=== PATIENT | male | born 1985 | race Two or more races ===

== ENCOUNTER 2025-03-10 08:32 | Inpatient (IN) | payer MEDICAID, OTHER ==
[~2025-03-10] VITALS: Ht 172.7 cm; Wt 69.4 kg
[2025-03-10 09:00] VITALS: PULSE 96; RESP 14; O2SAT 98
--- NOTE | 2025-03-10 09:04 | ED.PDOC ---
SOB-HPI HPI Comments This is a 40 year old male GIOVANNYA presenting to the ED with chief complaint SOB. Patient reports that he has been experiencing SOB with associated chest pain and cough for the past 2 days. EMS relays that the patient was placed on 2L via NC due to having an O2 saturation of 93%. Patient denies any N/V, fever, chills, dizziness, headache, or hemoptysis. Chief Complaint: Shortness of Breath Time Seen by MD: 09:02 Reviewed notes: Nurses Notes, Medications, Allergies Information Source: Patient Mode of Arrival: EMS Severity: Moderate Timing: Days Duration: Since onset Context: At Rest PE Risk Factors: None History of: None Prehospital treatment: Oxygen Modifying Factors: Nothing Associated Signs and Symptoms: Cough, Chest Pain Quality: Pressure Radiation: No Radiation Location: Substernal If cough with SOB: Non-Productive Past Medical History PAST MEDICAL HISTORY: Denies Surgical History: Denies all surgeries Family History Family History: Reviewed,noncontributory to illness Social History Smoker: Non-Smoker Alcohol: Denies ETOH Use Drugs: Denies Drug Use Lives In: Home Constitutional: denies: chills, diaphoresis, fatigue, fever, malaise, sweats, weakness, others EENTM: denies: blurred vision, double vision, ear bleeding, ear discharge, ear drainage, ear pain, ear ringing, eye pain, eye redness, hearing loss, mouth pain, mouth swelling, nasal discharge, nose bleeding, nose congestion, nose pain, photophobia, tearing, throat pain, throat swelling, voice changes, others Respiratory: reports: cough, shortness of breath; denies: hemoptysis, orthopnea, SOB at rest, SOB with excertion, stridor, wheezing, others Cardiovascular: reports: chest pain; denies: dizzy spells, diaphoresis, Dyspnea on exertion, edema, irregular heart beat, left arm pain, lightheadedness, palpit ations, PND, syncope, others Gastrointestinal: denies: abdomen distended, abdominal pain, blood streaked b owels, constipated, diarrhea, dysphagia, difficulty swallowing, hematemesis, melena, nausea, poor appetite, poor fluid intake, rectal bleeding, rectal pain, vomiting, others Genitourinary: denies: burning, dysuria, flank pain, frequency, hematuria, incontinence, penile discharge, penile sore, pain, testicle pain, testicle swelling, urgency, others Neurological: denies: dizziness, fainting, headache, left sided numbness, left sided weakness, numbness, paresthesia, pre-existing deficit, right sided numbness, right sided weakness, seizure, speech problems, tingling, tremors, weakness, others Musculoskeletal: denies: back pain, gout, joint pain, joint swelling, muscle pain, muscle stiffness, neck pain, others Integumetry: denies: bruises, change in color, change in hair/nails, dryness, laceration, lesions, lumps, rash, wounds, others Allergic/Immunocompromised: denies: Difficulty Healing, Frequent Infections, Hives, Itching, others Hematologic/Lymphatic: denies: anemia, blood clots, easy bleeding, easy bruisi ng, swollen glands, others Endocrine: denies: excessive hunger, excessive sweating, excessive thirst, exce ssive urination, flushing, intolerance to cold, intolerance to heat, unexplained weight gain, unexplained weight loss, others Psychiatric: denies: anxiety, bipolar disorder, depression, hopeless, panic disorder, schizophrenia, sleepless, suicidal, others All Other Systems: Reviewed and Negative Physical Exam General Appearance: No Apparent Distress, Normal, Other (Able to speak in full sentences.) HEENT: Normal ENT Inspection, Pharynx Normal, TMs Normal Neck: Full Range of Motion, Non-Tender, Normal, Normal Inspection Respiratory: Chest Non-Tender, Lungs Clear, No Accessory Muscle Use, No Respiratory Distress, Normal Breath Sounds Cardiovascular: No Edema, No JVD, No Murmur, No Gallop, Normal Peripheral Pulses, Regular Rate/Rhythm Breast Exam: Deferred Gastrointestinal: No Organomegaly, Non Tender, No Pulsatile Mass, Normal Bowel Sounds, Soft Genitalia: Deferred Pelvic: Deferred Rectal: Deferred Extremities: No calf tenderness, Normal capillary refill, Normal inspection, Normal range of motion, Non-tender, No pedal edema Musculoskeletal : Apperance: Normal Neurologic: Alert, 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 Was a procedure done?: Yes Sedation Sedation?: No Chest Tube Indication: Pneumothorax Procedure: Sterile preparation Anesthetic: Lidocaine Site: R 2nd intercostal space Drainage: Air Informed consent obtained: Yes Risks/benefits/alt described: Yes Notes Local lidocaine and prepping of skin for Thora-vent placement to right second intercostal space at the mid axillary line. Thora-vent was placed under sterile conditions and patient tolerated procedure well. Thora-vent diaphragm seen oscillating with each breathing, connection tube has condensation with each breath, patient felt immediate improvement. There is 20ccs of water in water seal in the Pleuro-vac. Differential Dx Differential Diagnosis: Anxiety, Asthma, CHF, COPD, Dysrhythmia, Hyperventilation, Myocardial infarction, Panic Attack, Pneumonia, Pneumothorax, Pulmonary Embolism, Respiratory Distress X-Ray, Labs, Meds, VS Vital Signs Date Time Temp Pulse Resp B/P (MAP) Pulse Ox O2 Delivery O2 Flow Rate FiO2 03/10/25 09:50 98.4 84 19 116/83 (94) 96 98.4 03/10/25 09:00 96 14 98 Nasal Cannula* 2 28 03/10/25 09:00 99.0 96 14 121/74 (90) 98 99.0 03/10/25 08:42 85 03/10/25 08:41 98.4 84 12 117/82 (94) 98 98.4 03/10/25 08:40 12 98 Nasal Cannula* 2 28 Lab Test 03/10/25 09:42 Range/Units White Blood Count 8.5 4.4-10.8 10^3/uL Red Blood Count 4.59 4.5-5.90 10^6/uL Hemoglobin 13.7 13.5-17.5 g/dL Hematocrit 41.3 41.0-53.0 % Mean Corpuscular Volume 90.0 80.0-100.0 fL Mean Corpuscular Hemoglobin 29.9 28.0-32.0 pg Mean Corpuscular Hemoglobin Concent 33.2 32.0-36.0 g/dL Red Cell Distribution Width 13.6 11.8-14.3 % Platelet Count 238 140-450 10^3/uL Mean Platelet Volume 8.4 6.9-10.8 fL Neutrophils (%) (Auto) 79.1 37.0-80.0 % Lymphocytes (%) (Auto) 14.3 10.0-50.0 % Monocytes (%) (Auto) 4.7 0.0-12.0 % Eosinophils (%) (Auto) 1.4 0.0-7.0 % Basophils (%) (Auto) 0.5 0.0-2.0 % Neutrophils # (Auto) 6.7 1.6-8.6 10 ^3/uL Lymphocytes # (Auto) 1.2 0.4-5.4 10 ^3/uL Monocytes # (Auto) 0.4 0-1.3 10 ^3/uL Eosinophils # (Auto) 0.1 0-0.8 10 ^3/uL Basophils # (Auto) 0 0-0.2 10 ^3/uL Nucleated Red Blood Cells 0.0 % Sodium Level 144 136-145 mmol/L Potassium Level 3.9 3.5-5.1 mmol/L Chloride Level 108 H 98-107 mmol/L Carbon Dioxide Level 30 20-31 mmol/L Anion Gap 6 5-15 Blood Urea Nitrogen 15 9-23 mg/dL Creatinine 1.10 0.700-1.30 mg/dL Glomerular Filtration Rate Calc 86 >90 mL/min BUN/Creatinine Ratio 13.6 10.0-20.0 Serum Glucose 94 74-106 mg/dL Calcium Level 8.8 8.7-10.4 mg/dL Troponin I High Sensitivity 8 </=54 ng/L Chest XR: FINDINGS: LUNGS AND PLEURAL SPACES: Right-sided pneumothorax. HEART: Unremarkable. No cardiomegaly. MEDIASTINUM: Unremarkable. Normal mediastinal contour. BONES/JOINTS: Unremarkable. No acute fracture. OTHER FINDINGS: . . IMPRESSION: Right-sided pneumothorax. Findings were discussed with dr. Brambila by phone on 03/10/2025 at 9:46 a.m. Chest XR s/p chest tube placement notes re-expansion of the lung. Images Reviewed?: Images reviewed and evaluated by me Time of 1ST Reevaluation: 10:01 Reevaluation 1ST: Unchanged Time of 2ND Reevaluation: 11:55 Reevaluation 2ND: Improved Patient Education/Counseling: Diagnosis, Treatment, Prognosis, Need For Follow Up Family Education/Counseling: No Family Present Comments pt has a spontaneous ptx of the right lung at 100% with mediastinal shift to left. a thoravent was placed with improvement. pt will be admitted for further monitoring Additional Information Previous visits reviewed: None The following tests were ordered, and results were reviewed by me: CBC, BMP, Troponin, Chest XR Additional Information was gathered from interviewing the following independent historians: EMS I reviewed and agreed with the following test results read by other providers: Chest XR I discussed treatment and results with medical personnel and: patient Comprehensive systems review obtained and negative except for what is stated in the HPI. SEPSIS Sepsis Screen Date sepsis recognized/suspect: Mar 10, 2025 Time Sepsis recognized/suspect: 837 Recent Procedure: No On Antibiotic Therapy: No Respiratory Rate >20: No Heart Rate >90: No Temp<36 C (96.8 F) or >38.3 C: No SBP <90 or MAP <65 mmHG: No New Acute Mental Status Change: No Is the patient on CPAP, BIPAP,: No Physician Orders Electrocardigram (03/10/25 08:47) Chest Portable (03/10/25 08:57) Chest Xray 1 View (03/10/25 11:17) Vital Signs Date Time Temp Pulse Resp B/P (MAP) Pulse Ox O2 Delivery O2 Flow Rate FiO2 03/10/25 09:50 98.4 84 19 116/83 (94) 96 98.4 03/10/25 09:00 96 14 98 Nasal Cannula* 2 28 03/10/25 09:00 99.0 96 14 121/74 (90) 98 99.0 03/10/25 08:42 85 03/10/25 08:41 98.4 84 12 117/82 (94) 98 98.4 03/10/25 08:40 12 98 Nasal Cannula* 2 28 Laboratory Tests Test 03/10/25 09:42 White Blood Count 8.5 10^3/uL (4.4-10.8) Departure 1 Departure Time of Disposition: 11:56 Impression: Primary Impression: Pneumothorax on right Additional Impression: Tension pneumatocele Disposition: ADMITTED INPATIENT Admit to: Tele Condition: Stable Discharged With: Self Critical Care Note Critical Care Time?: Yes (55 min-critical care time only) Critical care comment: Due to concerns for patients condition deteriorating, the care required my highest level of attention and readiness to intervene. I assessed the patient, reviewed the medical records, ordered the appropriate tests and treatments, then reassessed for results and responsiveness. I communicated with medical personnel and consultants and formulated a plan of care. Total critical care time excludes any procedures Stability Stability form required: No Heart Score Heart Score: Heart Score Response (Comments) Value History Moderate Suspicious 1 EKG Normal 0 Age <45 0 Risk Factors No known risk factors 0 Troponin Normal limit 0 Total 1 I personally scribed for REBECCA CHAVEZ MD ([email or web address]) on 03/10/25 at 09:04. Electronically submitted by Bautista Conn ([email or web address]). I personally scribed for REBECCA CHAVEZ MD ([email or web address]) on 03/10/25 at 10:50. Electronically submitted by Bautista Conn ([email or web address]). I personally scribed for REBECCA CHAVEZ MD ([email or web address]) on 03/10/25 at 11:28. Electronically submitted by Bautista Conn ([email or web address]). I personally scribed for REBECCA CHAVEZ MD ([email or web address]) on 03/10/25 at 11:43. Electronically submitted by Bautista Conn ([email or web address]). REBECCA CHAVEZ MD Mar 10, 2025 09:04
--- NOTE | 2025-03-10 09:49 | DVH ---
EXAM: XR Chest, 1 View CLINICAL INDICATION: sob TECHNIQUE: Frontal view of the chest. COMPARISON: None FINDINGS: LUNGS AND PLEURAL SPACES: Right-sided pneumothorax. HEART: Unremarkable. No cardiomegaly. MEDIASTINUM: Unremarkable. Normal mediastinal contour. BONES/JOINTS: Unremarkable. No acute fracture. OTHER FINDINGS: . . IMPRESSION: Right-sided pneumothorax. Findings were discussed with dr. Brambila by phone on 03/10/2025 at 9:46 a.m.
[2025-03-10 10:03] LABS: Basophils # (auto) 0 10 ^3/uL (0-0.2); Basophils % (auto) 0.5 % (0.0-2.0); Eosinophils # (auto) 0.1 10 ^3/uL (0-0.8); Eosinophils % (auto) 1.4 % (0.0-7.0); Hematocrit 41.3 % (41.0-53.0); Hemoglobin 13.7 g/dL (13.5-17.5); Lymphocytes # (auto) 1.2 10 ^3/uL (0.4-5.4); Lymphocytes % (auto) 14.3 % (10.0-50.0); Mean Corpuscular Hemoglobin 29.9 pg (28.0-32.0); Mean Corpuscular Hgb Conc. 33.2 g/dL (32.0-36.0); Monocytes # (auto) 0.4 10 ^3/uL (0-1.3); Monocytes % (auto) 4.7 % (0.0-12.0); Neutrophils # (auto) 6.7 10 ^3/uL (1.6-8.6); Neutrophils % (auto) 79.1 % (37.0-80.0); Platelet Count (auto) 238 10^3/uL (140-450); Red Blood Cells 4.59 10^6/uL (4.5-5.90); Red Cell Distribution Width 13.6 % (11.8-14.3); White Blood Cell 8.5 10^3/uL (4.4-10.8)
[2025-03-10 10:11] LABS: Potassium 3.9 mmol/L (3.5-5.1); Sodium 144 mmol/L (136-145)
[2025-03-10 10:12] LABS: Anion Gap 6 (5-15); Calcium 8.8 mg/dL (8.7-10.4); Carbon Dioxide 30 mmol/L (20-31)
[2025-03-10 10:14] LABS: Chloride 108 mmol/L (98-107)
[2025-03-10 10:17] LABS: BUN/Creatinine Ratio 13.6 (10.0-20.0); Blood Urea Nitrogen 15 mg/dL (9-23); Glucose 94 mg/dL (74-106)
[2025-03-10] MEDS: LIDOCAINE 1% HCL (LOCAL ANESTH.) INJ 20ML MDV ID ONE (11:15)
--- NOTE | 2025-03-10 12:16 | DVH ---
XY CHEST XRAY 1 VIEW, HISTORY: S/P NEEDLE THORACOSTOMY COMPARISON: XY CHEST PORTABLE on DOS: 03/10/25 XY CHEST PORTABLE on DOS: 03/10/25 TECHNICAL DATA: 1 view of the chest was obtained. FINDINGS: Lines and tubes: A right sided chest tube is seen. Cardiomediastinal silhouette: normal Pulmonary vasculature: normal Lung expansion: normal Lung airspace: normal Lung interstitium: normal Pleura: normal Pneumothorax: Yes Bones: Unremarkable Other: no IMPRESSION: A right sided chest tube is seen with decreased size of the right pneumothorax now moderate to large.
[2025-03-10] MEDS ORDERED: ACETAMINOPHEN 325 MG TAB PO PRN (13:15)
[2025-03-10] MEDS ORDERED: NITROGLYCERIN 0.4 MG SL TAB SL PRN (13:15)
[2025-03-10] MEDS ORDERED: MORPHINE SULFATE INJ 2 MG/ml SYRG IV PRN (13:15)
[2025-03-10] MEDS ORDERED: ONDANSETRON HCL 4 MG/2 ML VIAL IV PRN (13:15)
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
[2025-03-10] MEDS: ENOXAPARIN SOD 40 MG/0.4 ML SYRINGE SC SCH (13:49)
--- NOTE | 2025-03-10 17:13 | DVH ---
CHEST RADIOGRAPH Indication: REASSESS LUNG EXPANSION Technique: Single frontal view of the chest was obtained COMPARISON: XY CHEST XRAY 1 VIEW on DOS: 03/10/25, XY CHEST PORTABLE on DOS: 03/10/25 FINDINGS: Lines and Tubes: Stable right-sided chest tube. Lungs: Stable volume loss throughout the right lung. Pleura: No effusion. Redemonstration of moderate to large right-sided pneumothorax with stable chest tube in place. Cardiomediastinal contours: Unremarkable Bones: Unremarkable IMPRESSION: Redemonstration of moderate to large right-sided pneumothorax with stable chest tube in place. No sig nificant interval change since prior chest x-ray from earlier today.
[2025-03-10 17:58] VITALS: PULSE 101; RESP 18; O2SAT 99
--- NOTE | 2025-03-10 18:13 | DVHSR ---
APPROVED REPORT EXAM: Two-dimensional and M-mode echocardiogram with Doppler and color Doppler. Blood Pressure: 119/70 mmHg INDICATION Chest Pain RISK FACTORS Height: 5' 8", Weight: 169 DIMENSIONS LVDd4.0 (3.8-5.7cm)LA (2D)3.6 (1.9-4.0cm)Aortic Root3.1 (2.0-3.7cm) LVDs2.9 (2.5-4.0cm)LA (MM) (1.9-4.0cm)Aortic Cusp Exc1.8 (1.5-2.0cm) EF (%) 55.0 (55-70%)Rt. Atrium4.1 (1.9-4.0cm)Asc. Aorta cm IVSd0.7 (0.7-1.1cm)RV (D) (1.8-2.4cm) PWd0.7 (0.7-1.1cm) Mitral Valve MitralMitral Stenosis E wave0.80m/sMV Mean GR.mmHg A wave0.70m/sMV Peak GR.mmHg E/A ratio1.12D MVAcm2 Aortic Valve Aortic ValveAortic Stenosis V11.00m/Geraldo Mean GR.4mmHg V21.40m/Geraldo Peak GR.8mmHg LVOT Diameter2.1 (1.8-2.4cm)Doppler AVA2.47cm2 Pulmonic Valve V21.10m/s Conclusion LV EF IS 65% AND IS NORMALL NORMAL VALVES NORMAL RV FUNCTION NO EFFUSION
[2025-03-10 18:38] LABS: Urine Amorphous Crystal FEW /hpf (None Seen); Urine Bacteria FEW /hpf (None Seen); Urine Blood Negative /uL (Negative); Urine Clarity Clear (Clear); Urine Color Light-Yellow (Yellow); Urine Mucus FEW (None Seen); Urine Protein, UAD Negative (Negative); Urine Specific Gravity 1.021 (1.001-1.035); Urine Squamous Epithelial Cell FEW /hpf (<5); Urine Urobilinogen Normal (Negative); Urine WBC 4 /HPF (0-3)
[2025-03-10 18:51] LABS: Amphetamine Screen, Urine Pos (NEGATIVE); Barbiturate Scree,Urine Neg (NEGATIVE); Benzodiazephine Screen, Urine Neg (NEGATIVE); Cannabinoid Screen, Urine Neg (NEGATIVE); Cocaine Screen, Urine Neg (NEGATIVE); Opiate Scree,Urine Neg (NEGATIVE); Phencyclidine Screen, Urine Neg (NEGATIVE)
[2025-03-10 19:30] VITALS: RESP 20; O2SAT 100
[2025-03-10 21:35] VITALS: BP 121/64; PULSE 104; RESP 18; TEMP 98.6; O2SAT 98
--- NOTE | 2025-03-10 22:21 | ECG ---
[facility] Test Date: 2025-03-10 Test Time: 08:42:45 Pat Name: ALO YEN Department: ED Room: [facility]4T A Gender: M Auto Glass Worker: [email or web address] : 1985 Requested By: REBECCA CHAVEZ Order Number: [id number] Reading MD: Jose Nice Measurements Intervals Maud Rate: 85 P: 90 OH: 104 QRS: 99 QRSD: 91 T: 91 QT: 364 QTc: 433 Interpretive Statements Sinus rhythm Short OH interval Borderline right axis deviation Left ventricular hypertrophy Nonspecific T abnormalities, lateral leads Electronically Signed On 03-13-2025 22:40:39 PDT by Jose Nice Please click the below link to view image of tracing.
[2025-03-10] MEDS: MORPHINE SULFATE INJ 2 MG/ml SYRG IV PRN (23:20)
[2025-03-11] VITALS (8 sets, daily range): BP systolic 102–121; BP diastolic 55–75; PULSE 54–92; RESP 17–20; TEMP 96.5–98.6; O2SAT 93–100
[2025-03-11] MEDS: HYDROcodone-ACET 5/325MG TAB PO PRN (02:21)
[2025-03-11 09:44] LABS: Basophils # (auto) 0 10 ^3/uL (0-0.2); Basophils % (auto) 0.4 % (0.0-2.0); Eosinophils # (auto) 0.2 10 ^3/uL (0-0.8); Eosinophils % (auto) 2.7 % (0.0-7.0); Hematocrit 41.6 % (41.0-53.0); Hemoglobin 13.7 g/dL (13.5-17.5); Lymphocytes # (auto) 1.7 10 ^3/uL (0.4-5.4); Lymphocytes % (auto) 18.8 % (10.0-50.0); Mean Corpuscular Hemoglobin 29.7 pg (28.0-32.0); Mean Corpuscular Hgb Conc. 33.1 g/dL (32.0-36.0); Mean Corpuscular Volume 89.7 fL (80.0-100.0); Monocytes # (auto) 0.4 10 ^3/uL (0-1.3); Monocytes % (auto) 4.3 % (0.0-12.0); Neutrophils # (auto) 6.5 10 ^3/uL (1.6-8.6); Neutrophils % (auto) 73.8 % (37.0-80.0); Nucleated Red Blood Cells % 0.1 %; Platelet Count (auto) 232 10^3/uL (140-450); Red Blood Cells 4.63 10^6/uL (4.5-5.90); Red Cell Distribution Width 13.5 % (11.8-14.3); White Blood Cell 8.9 10^3/uL (4.4-10.8)
[2025-03-11 10:09] LABS: Alanine Aminotransferase 13 U/L (7-40); Albumin 3.5 g/dL (3.2-4.8); Alkaline Phosphatase 91 U/L (46-116); Anion Gap 7 (5-15); Aspartate Aminotransferase 18 U/L (<34); BUN/Creatinine Ratio 11.5 (10.0-20.0); Bilirubin, Total 0.4 mg/dL (0.2-1.0); Blood Urea Nitrogen 13 mg/dL (9-23); Calcium 9.3 mg/dL (8.7-10.4); Carbon Dioxide 30 mmol/L (20-31); Chloride 105 mmol/L (98-107); Potassium 4.1 mmol/L (3.5-5.1); Sodium 142 mmol/L (136-145); Total Protein 6.1 g/dL (5.7-8.2)
--- NOTE | 2025-03-11 10:47 | DVH ---
CHEST XRAY: 1 view(s) was obtained HISTORY: ptx COMPARISON: XY CHEST XRAY 1 VIEW on DOS: 03/10/25, XY CHEST XRAY 1 VIEW on DOS: 03/10/25, XY CHEST PORT ABLE on DOS: 03/10/25 FINDINGS: Right chest wall aspiration catheter. There is a small right pneumothorax with 2.5 cm apical- pleural distance. Right lower lobe atelectasis remains. Cardiomediastinal solid is normal in size. No acute osseous 7 mild. IMPRESSION: 1. Significant reexpansion of the right lung when compared to 03/10, though a small right pneumothorax and right basilar atelectasis - trapped lung remain.
[2025-03-11 10:54] LABS: Glucose 61 mg/dL (74-106)
--- NOTE | 2025-03-11 14:19 | DVHPN2 ---
Subjective states pain is better Changes from previous H/P or p: No Changes Cardiovascular: Chest Pain Respiratory: Shortness of breath Objective Vitals Vital Signs Date Time Temp Pulse Resp B/P (MAP) Pulse Ox O2 Delivery O2 Flow Rate FiO2 03/11/25 12:44 97.8 61 20 102/73 (83) 96 97.8 03/11/25 07:45 Non-Rebreather 15 N/A Intake/Output Intake and Output 03/11/25 07:00 Intake Total 120 ml Balance 120 ml Intake Oral 120 ml General Appearance: Alert, Oriented X3, Cooperative, No acute distress Lungs: Clear to auscultation Cardiovascular: Regular rate, Normal S1, Normal S2 Abdomen: Normal bowel sounds, Soft, No tenderness, No hepatospenomegaly Neuro: Normal gait, Normal speech, Strength at 5/5 X4 ext, Normal tone, S ensation intact, Cranial nerves 3-12 NL Psych/Mental Status: Mental status NL, Mood NL Medications Current Medications Medications Dose Ordered Sig/Omid Route Start Time Stop Time Status Last Admin Dose Admin Acetaminophen/ Hydrocodone Bitart 1 tab Q4HP PRN PO 03/10/25 13:15 03/11/25 02:21 1 TAB Ondansetron HCl 4 mg Q4HP PRN IV 03/10/25 13:15 Acetaminophen 650 mg Q6HP PRN PO 03/10/25 13:15 Morphine Sulfate 2 mg Q4HPRN PRN IV 03/10/25 13:15 03/10/25 23:20 2 MG Nitroglycerin 0.4 mg Q5MINP PRN SL 03/10/25 13:15 Morphine Sulfate 2 mg Q30M PRN IV 03/10/25 13:15 Enoxaparin Sodium 40 mg DAILY SC 03/10/25 13:15 Laboratory Results Laboratory Tests 03/11/25 08:50 Chemistry Test 03/11/25 08:50 Albumin 3.5 g/dL (3.2-4.8) Calcium Level 9.3 mg/dL (8.7-10.4) Total Protein 6.1 g/dL (5.7-8.2) LFT Test 03/11/25 08:50 Alanine Aminotransferase (ALT) 13 U/L (7-40) Alkaline Phosphatase 91 U/L (46-116) Aspartate Amino Transferase (AST) 18 U/L (<34) Total Bilirubin 0.4 mg/dL (0.2-1.0) Urinalysis Test 03/10/25 18:20 Urine Color Light-yellow (Yellow) Urine Clarity Clear (Clear) Urine pH 7.0 (5.0-9.0) Urine Specific [place] 1.021 (1.001-1.035) Urine Protein Negative (Negative) Urine Ketones Negative (Negative) Urine Blood Negative /uL (Negative) Urine Nitrite Negative (Negative) Urine Bilirubin Negative (Negative) Urine Urobilinogen Normal mg/dL (Negative) Urine Leukocyte Esterase Negative /uL (Negative) Urine RBC 2 /hpf (0 - 3) Urine Microscopic WBC 4 /HPF (0-3) H Urine Squamous Epithelial Cells Few /hpf (<5) Urine Amorphous Crystals Few /hpf (None Seen) Urine Bacteria Few /hpf (None Seen) H Urine Mucus Few (None Seen) Urine Glucose Normal mg/dL (Normal) Assessment/Plan Assessment/Plan rt pneumothorax- s/p chest tube ? lung trapping- pulmonary consulted/on board meth abuse- no signs of withdrawl monitor Plan discussed with: Patient, Other Date of Service: Mar 11, 2025 Billing Provider: DARREL CHAMPAGNE MD Common Visit Codes: [id number] INP/OBS CARE(MOD) DARREL CHAMPAGNE MD Mar 11, 2025 14:19
[2025-03-11] MEDS: cefTRIAXone 1GM/50ML D5W 50 ML IV ONE (16:09)
--- NOTE | 2025-03-11 16:19 | DVHINCON2 ---
Date of service: Mar 10, 2025 Referring Physician Violeta Sol Np Reason for Consultation Acute respiratory failure History of Present Illness History Source: Patient Exam Limitations: No limitations HPI Patient is a 40-year old gentleman with a history of nicotine dependency and substance abuse who presented with chest pain, shortness of breath and cough. Was seen in the emergency room where chest x-ray demonstrated right pneumothorax and chest tube was subsequently placed by the ER provider. Pulmonology was consulted to assist in management. Home Meds No Active Prescriptions or Reported Meds Past Medical History Cardiac: No pertinent Hx Pulmonary: No pertinent Hx Central Nervous System: No pertinent Hx GI: No pertinent Hx Hemotology/Oncology: No pertinent Hx Hepatobiliary: No pertinent Hx Psychiatric: No pertinent Hx Musculoskeletal: No pertinent Hx Rheumotologic: No pertinent Hx Infectious Disease: No peritnent Hx ENT: No pertinent Hx Renal/: No pertinent Hx Endocrine: No pertinent Hx Dermatology: No pertinent Hx Past Surgical History: No pertinent Hx Patient Family History: Diabetes mellitus G8 MOTHER Smoker: Positive Alocohol: None Drugs: Amphetimines Lives with: With family Domestic Violence: Neg Review of Systems Constitutional: No symptom reported Ears, Nose, & Throat: No symptom reported Eyes: No symptom reported Pulmonary/Respiratory: Dyspnea, Cough Cardiovascular: Chest Pain Gastrointestinal: No symptom reported Genitourinary: No symptom reported Musculoskeletal: No symptom reported Skin: No symptom reported Psychiatric: No symptom reported Endocrine: No symptom reported Hemotologic/Lymphatic: No symptom reported H&P Exam Vital Signs Vital Signs Date Time Temp Pulse Resp B/P (MAP) Pulse Ox O2 Delivery O2 Flow Rate FiO2 03/11/25 12:44 97.8 61 20 102/73 (83) 96 97.8 03/11/25 07:45 Non-Rebreather 15 N/A General Appeara: Well developed, Well nourished, Normal Appearance Head Exam: Normal inspection Neck Exam: Normal inspection, Non-tender, Normal alignment Eye Exam: bilateral eye Normal inspection, bilateral eye PERRL, bilateral eye EOMI Ear Exam: bilateral ear Auricle normal, bilateral ear Canal normal, bilateral ear TM normal Nasal Exam: Normal inspection Mouth: Normal Inspection Pulmonary/Respiratory: Decreased breath sounds Cardiovascular/Chest: Normal inspection, Regular rate, Normal Rhythm Peripheral Pulses: 4+ Radial (R), 4+ Radial (L), 4+ Brachial (R), 4+ Brachial (L) Abdominal Exam: Normal bowel sounds Labs/Xrays Labs Test 03/11/25 08:50 03/10/25 18:20 03/10/25 09:42 Range/Units White Blood Count 8.9 4.4-10.8 10^3/uL Red Blood Count 4.63 4.5-5.90 10^6/uL Hemoglobin 13.7 13.5-17.5 g/dL Hematocrit 41.6 41.0-53.0 % Mean Corpuscular Volume 89.7 80.0-100.0 fL Mean Corpuscular Hemoglobin 29.7 28.0-32.0 pg Mean Corpuscular Hemoglobin Concent 33.1 32.0-36.0 g/dL Red Cell Distribution Width 13.5 11.8-14.3 % Platelet Count 232 140-450 10^3/uL Mean Platelet Volume 8.6 6.9-10.8 fL Neutrophils (%) (Auto) 73.8 37.0-80.0 % Lymphocytes (%) (Auto) 18.8 10.0-50.0 % Monocytes (%) (Auto) 4.3 0.0-12.0 % Eosinophils (%) (Auto) 2.7 0.0-7.0 % Basophils (%) (Auto) 0.4 0.0-2.0 % Neutrophils # (Auto) 6.5 1.6-8.6 10 ^3/uL Lymphocytes # (Auto) 1.7 0.4-5.4 10 ^3/uL Monocytes # (Auto) 0.4 0-1.3 10 ^3/uL Eosinophils # (Auto) 0.2 0-0.8 10 ^3/uL Basophils # (Auto) 0 0-0.2 10 ^3/uL Nucleated Red Blood Cells 0.1 % Sodium Level 142 136-145 mmol/L Potassium Level 4.1 3.5-5.1 mmol/L Chloride Level 105 98-107 mmol/L Carbon Dioxide Level 30 20-31 mmol/L Anion Gap 7 5-15 Blood Urea Nitrogen 13 9-23 mg/dL Creatinine 1.13 0.700-1.30 mg/dL Glomerular Filtration Rate Calc 84 >90 mL/min BUN/Creatinine Ratio 11.5 10.0-20.0 Serum Glucose 61 L 74-106 mg/dL Calcium Level 9.3 8.7-10.4 mg/dL Total Bilirubin 0.4 0.2-1.0 mg/dL Aspartate Amino Transferase (AST) 18 <34 U/L Alanine Aminotransferase (ALT) 13 7-40 U/L Alkaline Phosphatase 91 46-116 U/L Total Protein 6.1 5.7-8.2 g/dL Albumin 3.5 3.2-4.8 g/dL Urine Color Light-yellow Yellow Urine Clarity Clear Clear Urine pH 7.0 5.0-9.0 Urine Specific [place] 1.021 1.001-1.035 Urine Protein Negative Negative Urine Ketones Negative Negative Urine Blood Negative Negative /uL Urine Nitrite Negative Negative Urine Bilirubin Negative Negative Urine Urobilinogen Normal Negative mg/dL Urine Leukocyte Esterase Negative Negative /uL Urine RBC 2 0 - 3 /hpf Urine Microscopic WBC 4 H 0-3 /HPF Urine Squamous Epithelial Cells Few <5 /hpf Urine Amorphous Crystals Few None Seen /hpf Urine Bacteria Few H None Seen /hpf Urine Mucus Few None Seen Urine Glucose Normal Normal mg/dL Urine Opiates Screen Neg NEGATIVE Urine Fentanyl Screen Neg NEGATIVE Urine Barbiturates Screen Neg NEGATIVE Urine Phencyclidine Screen Neg NEGATIVE Urine Amphetamines Screen Pos NEGATIVE Urine Benzodiazepines Screen Neg NEGATIVE Urine Cocaine Screen Neg NEGATIVE Urine Cannabinoids Screen Neg NEGATIVE Troponin I High Sensitivity 8 </=54 ng/L Assessment/Plan Plan Impression Acute hypoxemic respiratory failure Spontaneous right pneumothorax Substance abuse Smoker Patient seen and examined Events Low oxygen requirements On 2 liters nasal cannula Vital signs stable Labs and imaging reviewed Chest x-ray shows right pneumothorax, chest tube in place Management Supplemental oxygen Titrate to maintain sats 90% or above Incentive spirometry Bronchodilators Monitor renal function Monitor electrolytes Supplement as needed Pain control Avoid oversedation Chest tube to continuous negative suction DVT prophylaxis Plan discussed with: Patient SILKE GARCIA MD Mar 11, 2025 16:19
--- NOTE | 2025-03-11 16:20 | DVHPN2 ---
Progress Note - Dictate Date Seen: Mar 11, 2025 Medical Necessity Reason Pt with a Central, PICC or Fol: No vital signs Vital Sign Date Time Temp Pulse Resp B/P (MAP) Pulse Ox O2 Delivery O2 Flow Rate FiO2 03/11/25 12:44 97.8 61 20 102/73 (83) 96 97.8 03/11/25 07:45 Non-Rebreather 15 N/A Total Intake and Output 03/10/25 03/10/25 03/11/25 15:00 23:00 07:00 Intake Total 120 ml Balance 120 ml medications Current Medications Medications Dose Ordered Sig/Omid Route Start Time Stop Time Status Last Admin Dose Admin Acetaminophen/ Hydrocodone Bitart 1 tab Q4HP PRN PO 03/10/25 13:15 03/11/25 02:21 1 TAB Acetaminophen 650 mg Q6HP PRN PO 03/10/25 13:15 Enoxaparin Sodium 40 mg DAILY SC 03/10/25 13:15 Ceftriaxone Sodium 50 ml @ 100 mls/hr DAILY@09 IV 03/12/25 09:00 laboratory and microbiology Laboratory Tests 03/11/25 08:50 Test 03/11/25 08:50 Range/Units Serum Glucose 61 L 74-106 mg/dL Assessment/Plan Impression Acute hypoxemic respiratory failure Spontaneous right pneumothorax Substance abuse Smoker Patient seen and examined Events Low oxygen requirements On 2 liters nasal cannula Right sided chest tube in place for pneumothorax Labs and imaging reviewed Management Supplemental oxygen Titrate to maintain sats 90% or above Incentive spirometry Bronchodilators Monitor renal function Monitor electrolytes Supplement as needed Pain control Avoid oversedation Chest tube to continuous negative suction DVT prophylaxis Critical care time 35 minutes Plan discussed with: Patient SILKE GARCIA MD Mar 11, 2025 16:20
[2025-03-12] VITALS (8 sets, daily range): BP systolic 104–111; BP diastolic 57–92; PULSE 51–78; RESP 14–18; TEMP 97.5–98.4; O2SAT 94–100
--- NOTE | 2025-03-12 07:20 | DVH ---
EXAM: XY CHEST XRAY 1 VIEW HISTORY: ptx COMPARISON: XY CHEST XRAY 1 VIEW on DOS: 03/11/25, XY CHEST XRAY 1 VIEW on DOS: 03/10/25, XY CHEST XRAY 1 VIEW on DOS: 03/10/25, XY CHEST PORTABLE on DOS: 03/10/25 TECHNIQUE: Portable AP view of the chest was performed. FINDINGS: There is small right apical pneumothorax measuring 8 mm, with right thoracostomy tube reidentified. T here is right basilar atelectasis. There is right lung interstitial opacity. The heart is borderline enlarged. IMPRESSION: Small residual right apical pneumothorax with thoracostomy tube in place. There are right basilar ate lectasis and mild right lung interstitial prominence.
[2025-03-12] MEDS: cefTRIAXone 1GM/50ML D5W 50 ML IV SCH (09:18)
--- NOTE | 2025-03-12 12:53 | DVHPN2 ---
Reviewed: Care Plan, H&P Changes from previous H/P or p: No Changes Cardiovascular: Chest Pain Respiratory: Shortness of breath Objective Vitals Vital Signs Date Time Temp Pulse Resp B/P (MAP) Pulse Ox O2 Delivery O2 Flow Rate FiO2 03/12/25 09:00 97.5 72 18 104/92 (96) 99 97.5 03/12/25 08:00 Nasal Cannula* 2 28 Intake/Output Intake and Output 03/12/25 07:00 Intake Total 1250 ml Output Total 800 ml Balance 450 ml Intake Oral 1200 ml IV Total 50 ml Output Urine Total 800 ml Chest Tube Drainage Total 0 ml # Voids 3 General Appearance: Alert, Oriented X3, Cooperative, No acute distress Lungs: Clear to auscultation Cardiovascular: Regular rate, Normal S1, Normal S2 Abdomen: Normal bowel sounds, Soft, No tenderness, No hepatospenomegaly Neuro: Normal gait, Normal speech, Strength at 5/5 X4 ext, Normal tone, S ensation intact, Cranial nerves 3-12 NL Psych/Mental Status: Mental status NL, Mood NL Medications Current Medications Medications Dose Ordered Sig/Omid Route Start Time Stop Time Status Last Admin Dose Admin Acetaminophen/ Hydrocodone Bitart 1 tab Q4HP PRN PO 03/10/25 13:15 03/12/25 04:02 1 TAB Acetaminophen 650 mg Q6HP PRN PO 03/10/25 13:15 Enoxaparin Sodium 40 mg DAILY SC 03/10/25 13:15 Ceftriaxone Sodium 50 ml @ 100 mls/hr DAILY@09 IV 03/12/25 09:00 03/12/25 09:18 100 MLS/HR Laboratory Results Laboratory Tests 03/11/25 08:50 Urinalysis Test 03/10/25 18:20 Urine Color Light-yellow (Yellow) Urine Clarity Clear (Clear) Urine pH 7.0 (5.0-9.0) Urine Specific [place] 1.021 (1.001-1.035) Urine Protein Negative (Negative) Urine Ketones Negative (Negative) Urine Blood Negative /uL (Negative) Urine Nitrite Negative (Negative) Urine Bilirubin Negative (Negative) Urine Urobilinogen Normal mg/dL (Negative) Urine Leukocyte Esterase Negative /uL (Negative) Urine RBC 2 /hpf (0 - 3) Urine Microscopic WBC 4 /HPF (0-3) H Urine Squamous Epithelial Cells Few /hpf (<5) Urine Amorphous Crystals Few /hpf (None Seen) Urine Bacteria Few /hpf (None Seen) H Urine Mucus Few (None Seen) Urine Glucose Normal mg/dL (Normal) Assessment/Plan Assessment/Plan rt pneumothorax- s/p chest tube ? lung trapping- pulmonary consulted/on board meth abuse- no signs of withdrawl monitor acute hypoxic resp failure improving, pulm to remove chest tube when apprropriate Plan discussed with: Patient Date of Service: Mar 12, 2025 Billing Provider: EMILIE SANCHEZ DO Common Visit Codes: [id number] INP/OBS CARE(HIGH) EMILIE SANCHEZ DO Mar 12, 2025 12:53
--- NOTE | 2025-03-12 18:58 | DVHPN2 ---
Progress Note - Dictate Date Seen: Mar 12, 2025 Medical Necessity Reason Pt with a Central, PICC or Fol: No vital signs Vital Sign Date Time Temp Pulse Resp B/P (MAP) Pulse Ox O2 Delivery O2 Flow Rate FiO2 03/12/25 17:00 98.0 56 18 106/57 (73) 100 98.0 03/12/25 08:00 Nasal Cannula* 2 28 Total Intake and Output 03/11/25 03/11/25 03/12/25 15:00 23:00 07:00 Intake Total 950 ml 300 ml Output Total 800 ml Balance 950 ml -500 ml medications Current Medications Medications Dose Ordered Sig/Omid Route Start Time Stop Time Status Last Admin Dose Admin Acetaminophen/ Hydrocodone Bitart 1 tab Q4HP PRN PO 03/10/25 13:15 03/12/25 15:53 1 TAB Acetaminophen 650 mg Q6HP PRN PO 03/10/25 13:15 Enoxaparin Sodium 40 mg DAILY SC 03/10/25 13:15 Ceftriaxone Sodium 50 ml @ 100 mls/hr DAILY@09 IV 03/12/25 09:00 03/12/25 09:18 100 MLS/HR laboratory and microbiology Laboratory Tests 03/11/25 08:50 Test 03/11/25 08:50 Range/Units Serum Glucose 61 L 74-106 mg/dL Assessment/Plan Impression Acute hypoxemic respiratory failure Spontaneous right pneumothorax Substance abuse Smoker Patient seen and examined Events Low oxygen requirements On 2 liters nasal cannula No distress S/p chest tube placement for right pneumothorax Chest x-ray this morning demonstrates almost complete re-expansion of the lung Catheter was subsequently removed without complication Management Supplemental oxygen Titrate to maintain sats 90% or above Incentive spirometry Bronchodilators Monitor renal function Monitor electrolytes Supplement as needed Pain control Avoid oversedation DVT prophylaxis Plan discussed with: Patient SILKE GARCIA MD Mar 12, 2025 18:58
[2025-03-13] VITALS (8 sets, daily range): BP systolic 109–123; BP diastolic 51–76; PULSE 52–101; RESP 16–18; TEMP 97.4–98.4; O2SAT 93–98
--- NOTE | 2025-03-13 06:35 | DVH ---
EXAM: XR Chest, 1 View CLINICAL INDICATION: ptx TECHNIQUE: Frontal view of the chest. COMPARISON: No relevant prior studies available. FINDINGS: LUNGS AND PLEURAL SPACES: See below. HEART: Unremarkable. No cardiomegaly. MEDIASTINUM: Unremarkable. Normal mediastinal contour. BONES/JOINTS: Unremarkable. No acute fracture. TUBES, LINES AND DEVICES: Removal right-sided chest tube. Right pneumothorax, approximately 30% in volume reduction. OTHER FINDINGS: Comparison XY CHEST XRAY 1 VIEW on DOS: 03/12/25, XY CHEST XRAY 1 VIEW on DOS: , XY CHEST XRAY 1 VIEW on DOS: 03/10/25, XY CHEST XRAY 1 VIEW on DOS: 03/10/25, XY CHEST PORTABLE on DOS: 03/10/25. IMPRESSION: Removal right-sided chest tube. Right pneumothorax, approximately 30% in volume reduction. HS:Y
--- NOTE | 2025-03-13 12:42 | DVHPN2 ---
Progress Note - Dictate Date Seen: Mar 13, 2025 Medical Necessity Reason Pt with a Central, PICC or Fol: No vital signs Vital Sign Date Time Temp Pulse Resp B/P (MAP) Pulse Ox O2 Delivery O2 Flow Rate FiO2 03/13/25 09:00 97.4 70 18 112/51 (71) 96 97.4 03/13/25 08:00 Nasal Cannula* 2 28 Total Intake and Output 03/12/25 03/12/25 03/13/25 15:00 23:00 07:00 Intake Total 290 ml 480 ml 500 ml Output Total 1300 ml 1620 ml Balance 290 ml -820 ml -1120 ml medications Current Medications Medications Dose Ordered Sig/Omid Route Start Time Stop Time Status Last Admin Dose Admin Acetaminophen/ Hydrocodone Bitart 1 tab Q4HP PRN PO 03/10/25 13:15 03/13/25 06:21 1 TAB Acetaminophen 650 mg Q6HP PRN PO 03/10/25 13:15 Enoxaparin Sodium 40 mg DAILY SC 03/10/25 13:15 Ceftriaxone Sodium 50 ml @ 100 mls/hr DAILY@09 IV 03/12/25 09:00 03/13/25 09:18 100 MLS/HR laboratory and microbiology Laboratory Tests 03/11/25 08:50 Test 03/11/25 08:50 Range/Units Serum Glucose 61 L 74-106 mg/dL Assessment/Plan Impression Acute hypoxemic respiratory failure Spontaneous right pneumothorax Substance abuse Smoker Patient seen and examined Events Low oxygen requirements On 2 liters nasal cannula No acute events S/p chest tube removal yesterday Labs and imaging reviewed Chest x-ray shows 30% right pneumothorax Management Supplemental oxygen Titrate to maintain sats 90% or above Incentive spirometry Bronchodilators Monitor renal function Monitor electrolytes Supplement as needed Pain control Avoid oversedation Observe patient DVT prophylaxis Plan discussed with: Patient SILKE GARCIA MD Mar 13, 2025 12:42
[2025-03-14 05:00] VITALS: BP 104/65; PULSE 84; RESP 20; TEMP 97.7; O2SAT 94
[2025-03-14 06:53] VITALS: PULSE 65
[2025-03-14 09:00] VITALS: BP 120/70; PULSE 87; RESP 18; TEMP 98.3; O2SAT 98
[2025-03-14 13:00] VITALS: BP 121/78; PULSE 100; RESP 19; TEMP 97.5; O2SAT 97
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
--- NOTE | 2025-03-16 13:38 | DVHPN2 ---
Reviewed: Care Plan, H&P, Labs, Medications, Previous Orders, Radiology Changes from previous H/P or p: No Changes General: Per HPI Cardiovascular: Chest Pain Respiratory: Shortness of breath Objective Vitals Vital Signs Date Time Temp Pulse Resp B/P (MAP) Pulse Ox O2 Delivery O2 Flow Rate FiO2 03/14/25 13:00 97.5 100 19 121/78 (92) 97 97.5 03/14/25 08:00 Nasal Cannula* 2 28 General Appearance: Alert, Oriented X3, Cooperative, No acute distress Lungs: Clear to auscultation Cardiovascular: Regular rate, Normal S1, Normal S2 Abdomen: Normal bowel sounds, Soft, No tenderness, No hepatospenomegaly Neuro: Normal gait, Normal speech, Strength at 5/5 X4 ext, Normal tone, S ensation intact, Cranial nerves 3-12 NL Psych/Mental Status: Mental status NL, Mood NL Laboratory Results Laboratory Tests 03/11/25 08:50 Urinalysis Test 03/10/25 18:20 Urine Color Light-yellow (Yellow) Urine Clarity Clear (Clear) Urine pH 7.0 (5.0-9.0) Urine Specific [place] 1.021 (1.001-1.035) Urine Protein Negative (Negative) Urine Ketones Negative (Negative) Urine Blood Negative /uL (Negative) Urine Nitrite Negative (Negative) Urine Bilirubin Negative (Negative) Urine Urobilinogen Normal mg/dL (Negative) Urine Leukocyte Esterase Negative /uL (Negative) Urine RBC 2 /hpf (0 - 3) Urine Microscopic WBC 4 /HPF (0-3) H Urine Squamous Epithelial Cells Few /hpf (<5) Urine Amorphous Crystals Few /hpf (None Seen) Urine Bacteria Few /hpf (None Seen) H Urine Mucus Few (None Seen) Urine Glucose Normal mg/dL (Normal) Labs and/or images reviewed: Labs reviewed by me, Image(s) reviewed by me Assessment/Plan Assessment/Plan rt pneumothorax- s/p chest tube ? 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
== END 2025-03-14 16:20 | disposition home or self-care (01) | DRG 143 ==
LOC: EDBD 08:32 → ER 08:38 → OVERFLOW 13:07 → TELE-WESTW 21:35
PROVIDERS: ADMIT Internal Medicine; ATTEND Internal Medicine
PROC: 0W9930Z Drainage of Right Pleural Cavity with Drainage Device, Percutaneous Approach (ICD-10-PCS; principal; 2025-03-10)
DX: J93.83 Other pneumothorax (principal); J96.01 Acute respiratory failure with hypoxia; J94.2 Hemothorax; F15.10 Other stimulant abuse, uncomplicated; E11.9 Type 2 diabetes mellitus without complications; J98.8 Other specified respiratory disorders; F17.200 Nicotine dependence, unspecified, uncomplicated; K21.9 Gastro-esophageal reflux disease without esophagitis
CPT/HCPCS: 32551; 36415; 71045; 80048; 80053; 80307; 81001; 84484; 85025; 93005; 93306; 99291; G0378